=== PATIENT | female | born 1965 | race Two or more races ===

== ENCOUNTER 2019-03-08 11:50 | Outpatient (CLI) | END 2019-03-08 11:51 | disposition home or self-care (01) | LOC: LAB 11:50 | PROVIDERS: ATTEND Internal Medicine | DX: I10 Essential (primary) hypertension (principal); K21.9 Gastro-esophageal reflux disease without esophagitis; Z82.49 Family history of ischemic heart disease and other diseases of the circulatory system | CPT/HCPCS: 36415; 80053; 80061; 83036; 84439; 84443; 85025 ==